=== PATIENT | female | born 1980 | race Caucasian/White ===

== ENCOUNTER 2016-08-05 05:44 | Emergency (ER) | payer OTHER ==
[2016-08-05] MEDS ORDERED: HYDROcodone/ACETAMIN 5-325 MG* 1 TAB PO ONE (07:31)
--- NOTE | 2016-08-05 07:55 | RAD ---
INDICATION: Chest pain. COMPARISON: There are no prior studies available for comparison. TECHNIQUE: Dual-energy PA and lateral views of the chest were obtained. FINDINGS: The heart is within normal limits in size. Mediastinal and hilar contours appear within normal limits. The lungs are clear. No pleural effusion or pneumothorax is seen. IMPRESSION: NO EVIDENCE FOR ACTIVE CARDIOPULMONARY DISEASE.
[2016-08-05 08:24] LABS: Hematocrit 39 % (35-47); Hemoglobin 13.4 g/dl (12.0-16.0); Mean Corpuscular HGB Conc 35 g/dl (31-36); Mean Corpuscular Hemoglobin 30 pg (27-31); Mean Corpuscular Volume 86 fL (80-97); Mean Platelet Volume 9 um3 (7.4-10.4); Red Blood Count 4.52 10^6/ul (4.0-5.4); Red Cell Distribution Width 13 % (10.5-15); White Blood Count 8.5 10^3/ul (3.5-10.8)
[2016-08-05 08:33] LABS: Albumin 4.3 g/dL (3.2-5.2); BUN/Creatinine Ratio 13.8 (8-20); Calcium 9.3 mg/dL (8.6-10.3); EGFR African American 134.2 (>60); EGFR Non-African American 104.3 (>60); Globulin 2.9 g/dL (2-4); Potassium 3.7 mmol/L (3.5-5.0); Total Bilirubin 0.7 mg/dL (0.2-1.0); Total Protein 7.2 g/dL (6.4-8.9)
[2016-08-05 09:12] LABS: TSH (Thyroid Stimulating Horm) 1.24 mcIU/mL (0.34-5.60)
[2016-08-05 09:45] VITALS: BP 103/62
--- NOTE | 2016-08-05 18:02 | ED ---
Sheldon Ma Benjamin, scribed for Kvng Carter MD on 08/05/16 at 0732 . HPI Chest Pain - HPI Summary HPI Summary: 36yo female c/o burning and stabbing upper back pain that woke her up this morning around 0300. Pt also reports chest pain, and isnt sure which of the two cause the other. Pain aggravates in the rib cage area upon palpation, but not with movement or breathing. Denies SOB, nausea, cough, swelling or pain in legs or arms. Not on BCP. Pt states that she had similar pain before. Pt also has existing lower back and hip pain, hx of gestational DM, but denies hx of CAD. No FHx of CAD as well. - History of Current Complaint Chief Complaint: EDBackInjuryPain Time Seen by Provider: 08/05/16 07:15 Hx Obtained From: Patient Onset/Duration: Started Hours Ago, Atraumatic, Still Present Timing: Constant Initial Severity: Moderate Current Severity: Moderate Pain Intensity: 6 Pain Scale Used: 0-10 Numeric Chest Pain Location: Diffuse Chest Pain Radiates: Yes Chest Pain Radiates To:: Back - upper back Character: Burning, Sharp/Stabbing - stabbing Aggravating Factor(s): Other: - touching the rib cage Alleviating Factor(s): Nothing Associated Signs and Symptoms: Positive: Chest Pain. Negative: Shortness of Breath, Swelling, Nausea, Cough, Edema - Allergy/Home Medications Allergies/Adverse Reactions: Allergies Allergy/AdvReac Type Severity Reaction Status Date / Time No Known Allergies Allergy Verified 10/25/14 14:37 PMH/Surg Hx/FS Hx/Imm Hx Endocrine/Hematology History: Denies: Hx Diabetes Cardiovascular History: Denies: Hx Hypertension, Hx Pacemaker/ICD History: Reports: Other Problems/Disorders - etopic kidney as per pt Musculoskeletal History: Reports: Hx Back Problems, Other Musculoskeletal History - right hip pain and numbness in right ankle Sensory History: Reports: Hx Contacts or Glasses Denies: Hx Hearing Aid Opthamlomology History: Reports: Hx Contacts or Glasses Neurological History: Reports: Hx Migraine, Other Neuro Impairments/Disorders - PAIN CLINIC PT Psychiatric History: Denies: Hx Panic Disorder - Surgical History Surgery Procedure, Year, and Place: 2010&04/07/14, 2003 wisdom teeth, eye surgery (strabismus AT 8 MONTHS OLD). Tubal ligation 2015 Hx Anesthesia Reactions: No - Immunization History Date of Influenza Vaccine: December 2015 Infectious Disease History: No Infectious Disease History: Denies: Traveled Outside the [place] in Last 30 Days - Family History Known Family History: Negative: Cardiac Disease, Hypertension, Diabetes - Social History Occupation: Employed Full-time Lives: With Family Alcohol Use: Weekly Alcohol Amount: 1-2 drinks/week Substance Use Type: Reports: None Smoking Status (MU): Never Smoked Tobacco Have You Smoked in the Last Year: No Review of Systems Constitutional: Negative Eyes: Negative ENT: Negative Positive: Chest Pain. Negative: Palpitations Negative: Shortness Of Breath, Cough Positive: Diarrhea. Negative: Abdominal Pain, Vomiting, Nausea Genitourinary: Negative Positive: Myalgia - upper back pain. Negative: Edema Skin: Negative Neurological: Negative Psychological: Normal All Other Systems Reviewed And Are Negative: Yes Physical Exam - Summary Physical Exam Summary: The patient is well-nourished in no acute distress and in no acute pain. The skin is warm and dry and skin color reflects adequate perfusion. HEENT: The head is normocephalic and atraumatic. The pupils are equal and reactive. The conjunctivae are clear and without drainage. Nares are patent and without drainage. Mouth reveals moist mucous membranes and the throat is without erythema and exudate. The external ears are intact. The ear canals are patent and without drainage. The tympanic membranes are intact. Neck is supple with full range of motion and non-tender. There are no carotid bruits. There is no neck vein distension. Respiratory: Chest is non-tender. Lungs are clear to auscultation and breath sounds are symmetrical and equal. Cardiovascular: Hear is regular rate and rhythm. There is no murmur or rub auscultated. There is no peripheral edema and pulses are symmetrical and equal. Reproducible CP to palpation, pain over T4-8. No paramuscular or vertebral tenderness. Slight muscle spasms on the right back Abdomen: The abdomen is soft and non-tender. There are normal bowel sounds heard in all four quadrants and there is no organomegaly palpated. No epigastric or RUQ pain. Musculoskeletal: There is no back pain noted. Extremities are non-tender with full range of motion. There is good capillary refill. There is no peripheral edema or calf tenderness elicited. Neurological: Patient is alert and oriented to person, place and time. The patient has symmetrical motor strength in all four extremities. Cranial nerves are grossly intact. Deep tendon reflexes are symmetrical and equal in all four extremities. Psychiatric: The patient has an appropriate affect and does not exhibit any anxiety or depression. Triage Information Reviewed: Yes Vital Signs On Initial Exam: Initial Vitals Temp Pulse Resp BP Pulse Ox 98.2 F 93 18 118/75 100 08/05/16 05:46 08/05/16 05:46 08/05/16 05:46 08/05/16 05:46 08/05/16 05:46 Vital Signs Reviewed: Yes - [place] Coma Scale Coma Scale Total: 15 Diagnostics - Vital Signs Vital Signs Temp Pulse Resp BP Pulse Ox 08/05/16 06:00 80 117/76 100 08/05/16 05:58 87 100 08/05/16 05:56 120/75 08/05/16 05:55 98.6 F 93 16 120/75 100 08/05/16 05:46 98.2 F 93 18 118/75 100 - Laboratory Lab Results: Lab Results 08/05/16 08/05/16 08/05/16 Range/Units 08:07 08:07 08:07 WBC 8.5 (3.5-10.8) 10^3/ul RBC 4.52 (4.0-5.4) 10^6/ul Hgb 13.4 (12.0-16.0) g/dl Hct 39 (35-47) % MCV 86 (80-97) fL MCH 30 (27-31) pg MCHC 35 (31-36) g/dl RDW 13 (10.5-15) % Plt Count 130 L (150-450) 10^3/ul MPV 9 (7.4-10.4) um3 Neut % (Auto) 82.4 (38-83) % Lymph % (Auto) 13.1 L (25-47) % Tyler % (Auto) 3.1 (1-9) % Eos % (Auto) 0.8 (0-6) % Baso % (Auto) 0.6 (0-2) % Absolute Neuts (auto) 7.0 (1.5-7.7) 10^3/ul Absolute Lymphs (auto) 1.1 (1.0-4.8) 10^3/ul Absolute Monos (auto) 0.3 (0-0.8) 10^3/ul Absolute Eos (auto) 0.1 (0-0.6) 10^3/ul Absolute Basos (auto) 0 (0-0.2) 10^3/ul Absolute Nucleated RBC 0.01 10^3/ul Nucleated RBC % 0.2 INR (Anticoag Therapy) 0.95 (0.89-1.11) D-Dimer, Quantitative 209 (Less Than 230) ng/mL Sodium 136 (133-145) mmol/L Potassium 3.7 (3.5-5.0) mmol/L Chloride 106 (101-111) mmol/L Carbon Dioxide 25 (22-32) mmol/L Anion Gap 5 (2-11) mmol/L BUN 9 (6-24) mg/dL Creatinine 0.65 (0.51-0.95) mg/dL Est GFR ( Amer) 134.2 (>60) Est GFR (Non-Af Amer) 104.3 (>60) BUN/Creatinine Ratio 13.8 (8-20) Glucose 106 H (70-100) mg/dL Lactic Acid (0.5-2.0) mmol/L Calcium 9.3 (8.6-10.3) mg/dL Total Bilirubin 0.70 (0.2-1.0) mg/dL AST 12 L (13-39) U/L ALT 12 (7-52) U/L Alkaline Phosphatase 32 L (34-104) U/L Troponin I 0.00 (<0.04) ng/mL B-Natriuretic Peptide ( - 100) pg/mL Total Protein 7.2 (6.4-8.9) g/dL Albumin 4.3 (3.2-5.2) g/dL Globulin 2.9 (2-4) g/dL Albumin/Globulin Ratio 1.5 (1-3) TSH 1.24 (0.34-5.60) mcIU/mL 08/05/16 08/05/16 Range/Units 08:07 08:07 WBC (3.5-10.8) 10^3/ul RBC (4.0-5.4) 10^6/ul Hgb (12.0-16.0) g/dl Hct (35-47) % MCV (80-97) fL MCH (27-31) pg MCHC (31-36) g/dl RDW (10.5-15) % Plt Count (150-450) 10^3/ul MPV (7.4-10.4) um3 Neut % (Auto) (38-83) % Lymph % (Auto) (25-47) % Tyler % (Auto) (1-9) % Eos % (Auto) (0-6) % Baso % (Auto) (0-2) % Absolute Neuts (auto) (1.5-7.7) 10^3/ul Absolute Lymphs (auto) (1.0-4.8) 10^3/ul Absolute Monos (auto) (0-0.8) 10^3/ul Absolute Eos (auto) (0-0.6) 10^3/ul Absolute Basos (auto) (0-0.2) 10^3/ul Absolute Nucleated RBC 10^3/ul Nucleated RBC % INR (Anticoag Therapy) (0.89-1.11) D-Dimer, Quantitative (Less Than 230) ng/mL Sodium (133-145) mmol/L Potassium (3.5-5.0) mmol/L Chloride (101-111) mmol/L Carbon Dioxide (22-32) mmol/L Anion Gap (2-11) mmol/L BUN (6-24) mg/dL Creatinine (0.51-0.95) mg/dL Est GFR ( Amer) (>60) Est GFR (Non-Af Amer) (>60) BUN/Creatinine Ratio (8-20) Glucose (70-100) mg/dL Lactic Acid 1.0 (0.5-2.0) mmol/L Calcium (8.6-10.3) mg/dL Total Bilirubin (0.2-1.0) mg/dL AST (13-39) U/L ALT (7-52) U/L Alkaline Phosphatase (34-104) U/L Troponin I (<0.04) ng/mL B-Natriuretic Peptide 37 ( - 100) pg/mL Total Protein (6.4-8.9) g/dL Albumin (3.2-5.2) g/dL Globulin (2-4) g/dL Albumin/Globulin Ratio (1-3) TSH (0.34-5.60) mcIU/mL Result Diagrams: 08/05/16 08:07 08/05/16 08:07 Lab Statement: Any lab studies that have been ordered have been reviewed, and results considered in the medical decision making process. - Radiology CXR Xray Interpretation: No Acute Changes Radiology Interpretation Completed By: Radiologist - EKG 0615. Cardiac Rate: NL - 78bpm EKG Rhythm: Sinus Rhythm ST Segment: Normal Ectopy: None EKG Interpretation: NO STEMI. Re-Evaluation - Re-Evaluation Second Eval Re-Evaluation Time: 09:25 Change: Improved Comment: Pt's symptoms are improved. Chest Pain Course/Dx - Chest Pain Differential Diagnosis/HQI/PQRI: Acute PA, ACS, Chest Wall, Pulmonary Embolism, Other: - acute strain - Diagnoses Provider Diagnoses: chest pain , Acute thoracic myofascial strain Discharge - Discharge Plan Condition: Stable Disposition: HOME Prescriptions: Hydrocodone-Acetaminophen [[place] 5-325 mg] 1 tab PO Q6HR PRN #20 tab MDD 4 PRN Reason: pain Patient Education Materials: Back Pain (ED), Chest Pain (ED), Narcotic- Analgesic/Acetaminophen (By mouth) Referrals: Tomi Schaffer MD [Primary Care Provider] - The documentation as recorded by the Sheldon nicole Benjamin accurately reflects the service I personally performed and the decisions made by Emma greenwood Drew, MD.
== END 2016-08-05 09:52 | disposition home or self-care (01) ==
LOC: ED 05:44
DX: S29.012A Strain of muscle and tendon of back wall of thorax, initial encounter (principal); M54.9 Dorsalgia, unspecified; R07.9 Chest pain, unspecified; R19.7 Diarrhea, unspecified; S21.209A Unspecified open wound of unspecified back wall of thorax without penetration into thoracic cavity, initial encounter; X58.XXXA Exposure to other specified factors, initial encounter; Y93.9 Activity, unspecified; Y92.89 Other specified places as the place of occurrence of the external cause
CPT/HCPCS: 36415; 71020; 80053; 83605; 83880; 84443; 84484; 85025; 85379; 85610; 93005; 99283

== ENCOUNTER 2016-10-10 09:25 | Emergency (ER) | payer OTHER ==
[2016-10-10 09:36] VITALS: BP 119/71
[2016-10-10] MEDS ORDERED: diPHENhydraMINE IV* 50 MG/ML 1 ml VIAL (BENADRYL) IV ONE (09:58)
[2016-10-10] MEDS ORDERED: NS 0.9% 1000 ML* 1,000 ML BOLUS ONE (09:58)
[2016-10-10] MEDS ORDERED: PROCHLORPERAZINE INJ 5 MG/ML 2 ML VIAL IV ONE (09:59)
--- NOTE | 2016-10-10 10:00 | UC ---
Headache HPI - HPI Summary HPI Summary: 36 yo female with hx of migraines since a child Has not had one for 2 yr has had migraines resulting in decreased strenght/sensaion on one side of her body Has had MRIs/Cts in past has seen neurologist developed MORILLO 5 days ago (when her menses started which has been a migraine trigger in the past left MORILLO headache nausea anorexia photopbia this is NOT the worse MORLILO of her life - History Of Current Complaint Chief Complaint: UCHeadache Stated Complaint: HEADACHE Time Seen by Provider: 10/10/16 09:42 Hx Obtained From: Patient Hx Last Menstrual Period: 10/06/16 Onset/Duration: Gradual Onset, Lasting Days Onset Of Symptoms: Gradual Currently Pain Is: Moderate Pain Intensity: 6 Pain Scale Used: 0-10 Numeric Timing: Constant Character: Throbbing, Typical Headache Location of Headache: Temporal Allevating Factors: Nothing Associated Signs And Symptoms: Positive: Nausea - Allergies/Home Medications Allergies/Adverse Reactions: Allergies Allergy/AdvReac Type Severity Reaction Status Date / Time No Known Allergies Allergy Verified 10/10/16 09:28 Home Medications: Home Medications Acetaminophen TAB* [Tylenol TAB*] 1,300 mg PO PRN 10/10/16 [History] Ibuprofen TAB* [Advil TAB*] 400 mg PO PRN 10/10/16 [History] PMH/Surg Hx/FS Hx/Imm Hx Previously Healthy: Yes Neurological History: Migraine - Surgical History Surgical History: Yes Surgery Procedure, Year, and Place: 2010&04/07/14, 2003 wisdom teeth, eye surgery (strabismus AT 8 MONTHS OLD). Tubal ligation 2014 - Family History Known Family History: Positive: Other - MIGRAINES Negative: Cardiac Disease, Hypertension, Diabetes - Social History Alcohol Use: Occasionally Alcohol Amount: 1-2 drinks/week Substance Use Type: None Smoking Status (MU): Never Smoked Tobacco Have You Smoked in the Last Year: No - Immunization History Most Recent Influenza Vaccination: 2012 Most Recent Tetanus Shot: 2009 Most Recent Pneumonia Vaccination: none Review of Systems Constitutional: Fatigue Skin: Negative Eyes: Negative ENT: Negative Respiratory: Negative Cardiovascular: Negative Gastrointestinal: Nausea Genitourinary: Negative Motor: Negative Neurovascular: Negative Musculoskeletal: Negative Neurological: Headache Psychological: Negative All Other Systems Reviewed And Are Negative: Yes Physical Exam Triage Information Reviewed: Yes Appearance: Well-Appearing, No Pain Distress, Well-Nourished Vital Signs: Initial Vital Signs Temp 98.7 F 10/10/16 09:30 Pulse 90 10/10/16 09:30 Resp 16 10/10/16 09:30 BP 119/71 10/10/16 09:30 Pulse Ox 100 10/10/16 09:30 Vital Signs Reviewed: Yes Eyes: Positive: Conjunctiva Clear ENT: Positive: Normal ENT inspection, Hearing grossly normal Dental Exam: Normal Neck: Positive: Supple, Nontender, No Lymphadenopathy Respiratory: Positive: Lungs clear, Normal breath sounds, No respiratory distress, No accessory muscle use Cardiovascular: Positive: RRR, No Murmur Bowel Sounds: Positive: Present Musculoskeletal: Positive: ROM Intact, No Edema Neurological: Positive: Alert, Other: - cn2-12 intact/strenght 5/5, dtrs equal , gait not tested. GCS 15/15 Re-Evaluation - Re-Evaluation First Eval Re-Evaluation Time: 11:30 Change: Improved - MORILLO gone Headache Course/Dx - Differential Dx/Diagnosis Provider Diagnoses: Migraine headache Discharge - Discharge Plan Condition: Stable Disposition: HOME Patient Education Materials: Migraine Headache (ED) Referrals: Tomi Schaffer MD [Primary Care Provider] - 1 Day Additional Instructions: See Dr. Schaffer tomorrow as planned
== END 2016-10-10 11:42 | disposition home or self-care (01) ==
LOC: UCEAST 09:25
DX: G43.909 Migraine, unspecified, not intractable, without status migrainosus (principal)
CPT/HCPCS: 96361; 96374; 96375; 99212; G0463; J0780; J1200